=== PATIENT | male | born 1995 | race American Indian/Alaskan Native ===

== ENCOUNTER 2018-04-30 15:11 | Emergency (ER) | payer MEDICAID ==
[2018-04-30 16:11] LABS: Basophils % (Auto) 0.4 % (0.0-1.8); Eosinophils % (Auto) 0.1 % (0.0-4.3); Hematocrit 44.4 % (35.5-45.6); Hemoglobin 14.8 gm/dl (11.8-15.2); Lymphocytes # (Auto) 1.1 K/mm3 (1.2-5.4); Lymphocytes % (Auto) 33.3 % (13.4-35.0); Mean Corpuscular HGB Conc 33 % (32-34); Mean Corpuscular Volume 92 fl (84-94); Monocytes # (Auto) 0.3 K/mm3 (0.0-0.8); Monocytes % (Auto) 10.4 % (0.0-7.3); Platelet Count 181 K/mm3 (140-440); Red Blood Count 4.81 M/mm3 (3.65-5.03); Red Cell Distribution Width 12.7 % (13.2-15.2)
[2018-04-30 16:23] LABS: BUN/Creatinine Ratio 9; Blood Urea Nitrogen 8 mg/dL (9-20); Calcium 9.4 mg/dL (8.4-10.2); Hemolysis Index 8
[2018-04-30 16:42] LABS: Bilirubin,Urine NEG (Negative); Blood,Urine NEG (Negative); Color,Urine Yellow (Yellow); Hyaline Casts,Urine 1 /LPF; Mucus,Urine FEW /HPF; Protein,Urine <15 mg/dL mg/dL (Negative); Urobilinogen,Urine < 2.0 mg/dL (<2.0)
[2018-04-30 16:58] LABS: Amphetamine Screen,Urine PRESUMPTIVE NEGATIVE; Benzodiazepines Screen,Urine PRESUMPTIVE NEGATIVE; Cannabinoid Screen,Urine PRESUMPTIVE NEGATIVE; Cocaine Screen,Urine PRESUMPTIVE NEGATIVE; Methadone Screen,Urine PRESUMPTIVE NEGATIVE; Opiate Screen,Urine PRESUMPTIVE NEGATIVE
--- NOTE | 2018-04-30 16:58 | Emergency Department Report ---
ED Psych HPI - General Chief Complaint: Psych Stated Complaint: SUICIDE IDEATION Time Seen by Provider: 04/30/18 15:49 Source: patient Mode of arrival: Ambulatory Limitations: No Limitations - History of Present Illness MD Complaint: suicidal ideation -: Gradual Associated Psychiatric Symptoms: depression, suicidal ideation, auditory hallucinations History of same: Yes Quality: intermittent Improves With: medication Worsens With: none Context: not taking psychiatric Associated Symptoms: denies other symptoms Treatments Prior to Arrival: none If Self Harm: admits thoughts of - Related Data Home Medications Medication Instructions Recorded Confirmed Last Taken Benztropine [Cogentin] 1 mg PO BID 01/17/13 04/30/18 01/17/13 20:00 Clotrimazole/Betamethasone Dip 1 applic TP BID 01/17/13 04/30/18 01/17/13 20:00 [Clotrimazole-Betamethasone Lotion] Diphenhydramine HCl [Sleep-Aid] 25 mg PO HS 01/17/13 04/30/18 01/17/13 20:00 Divalproex ER [Depakote ER] 750 mg PO DAILY 01/17/13 04/30/18 01/17/13 20:00 Famotidine [Pepcid] 20 mg PO BID 01/17/13 04/30/18 01/17/13 20:00 Haloperidol 10 mg PO BID 01/17/13 04/30/18 01/17/13 20:00 Sertraline [Zoloft] 150 mg PO QDAY 01/17/13 04/30/18 01/17/13 20:00 Trazodone HCl [Oleptro ER] 150 mg PO QHS 01/17/13 04/30/18 01/17/13 20:00 cloNIDine [Catapres] 0.1 mg PO BID 01/17/13 04/30/18 01/17/13 20:00 clonazePAM [Clonazepam] 0.5 mg PO BID PRN 01/17/13 04/30/18 01/17/13 20:00 Allergies Allergy/AdvReac Type Severity Reaction Status Date / Time red dye Allergy Itching Verified 12/18/15 16:25 Sulfa (Sulfonamide Allergy Hives Verified 01/18/13 13:12 Antibiotics) ED Review of Systems ROS: Stated complaint: SUICIDE IDEATION Other details as noted in HPI Comment: All other systems reviewed and negative Constitutional: denies: chills, fever Eyes: denies: eye pain, eye discharge, vision change ENT: denies: ear pain, throat pain Respiratory: denies: cough, shortness of breath, wheezing Cardiovascular: denies: chest pain, palpitations Endocrine: no symptoms reported Gastrointestinal: denies: abdominal pain, nausea, diarrhea Genitourinary: denies: urgency, dysuria Musculoskeletal: denies: back pain, joint swelling, arthralgia Skin: denies: rash, lesions Neurological: denies: headache, weakness, paresthesias Psychiatric: auditory hallucinations, suicidal thoughts. denies: anxiety, depression, visual hallucinations, homicidal thoughts Hematological/Lymphatic: denies: easy bleeding, easy bruising ED Past Medical Hx - Past Medical History Hx Hypertension: Yes Hx Psychiatric Treatment: Yes (schizophrenia) - Surgical History Past Surgical History?: Yes Additional Surgical History: tubes in ears - Social History Smoking Status: Never Smoker Substance Use Type: None - Medications Home Medications: Home Medications Medication Instructions Recorded Confirmed Last Taken Type Benztropine [Cogentin] 1 mg PO BID 01/17/13 04/30/18 01/17/13 20:00 History Clotrimazole/Betamethasone Dip 1 applic TP BID 01/17/13 04/30/18 01/17/13 20:00 History [Clotrimazole-Betamethasone Lotion] Diphenhydramine HCl [Sleep-Aid] 25 mg PO HS 01/17/13 04/30/18 01/17/13 20:00 History Divalproex ER [Depakote ER] 750 mg PO DAILY 01/17/13 04/30/18 01/17/13 20:00 History Famotidine [Pepcid] 20 mg PO BID 01/17/13 04/30/18 01/17/13 20:00 History Haloperidol 10 mg PO BID 01/17/13 04/30/18 01/17/13 20:00 History Sertraline [Zoloft] 150 mg PO QDAY 01/17/13 04/30/18 01/17/13 20:00 History Trazodone HCl [Oleptro ER] 150 mg PO QHS 01/17/13 04/30/18 01/17/13 20:00 History cloNIDine [Catapres] 0.1 mg PO BID 01/17/13 04/30/18 01/17/13 20:00 History clonazePAM [Clonazepam] 0.5 mg PO BID PRN 01/17/13 04/30/18 01/17/13 20:00 History ED Physical Exam - General Limitations: No Limitations General appearance: alert, in no apparent distress - Head Head exam: Present: atraumatic, normocephalic - Eye Eye exam: Present: normal appearance, PERRL - ENT ENT exam: Present: normal exam, mucous membranes moist - Neck Neck exam: Present: normal inspection, full ROM - Respiratory Respiratory exam: Present: normal lung sounds bilaterally. Absent: respiratory distress - Cardiovascular Cardiovascular Exam: Present: regular rate, normal rhythm. Absent: systolic murmur, diastolic murmur, rubs, gallop - GI/Abdominal GI/Abdominal exam: Present: soft, normal bowel sounds - Rectal Rectal exam: Present: deferred - Extremities Exam Extremities exam: Present: normal inspection - Back Exam Back exam: Present: normal inspection - Neurological Exam Neurological exam: Present: alert, oriented X3 - Psychiatric Psychiatric exam: Present: normal mood, depressed, flat affect, suicidal ideation. Absent: homicidal ideation - Skin Skin exam: Present: warm, dry, intact, normal color. Absent: rash ED Course Vital Signs 04/30/18 15:23 Temperature 98.9 F Pulse Rate 54 L Respiratory 16 Rate Blood Pressure 123/60 O2 Sat by Pulse 97 Oximetry ED Medical Decision Making - Lab Data Result diagrams: 04/30/18 15:49 04/30/18 15:49 Lab Results 04/30/18 04/30/18 04/30/18 Range/Units 15:49 15:49 15:49 WBC (4.5-11.0) K/mm3 RBC (3.65-5.03) M/mm3 Hgb (11.8-15.2) gm/dl Hct (35.5-45.6) % MCV (84-94) fl MCH (28-32) pg MCHC (32-34) % RDW (13.2-15.2) % Plt Count (140-440) K/mm3 Lymph % (Auto) (13.4-35.0) % [place] % (Auto) (0.0-7.3) % Eos % (Auto) (0.0-4.3) % Baso % (Auto) (0.0-1.8) % Lymph # (1.2-5.4) K/mm3 [place] # (0.0-0.8) K/mm3 Eos # (0.0-0.4) K/mm3 Baso # (0.0-0.1) K/mm3 Seg Neutrophils % (40.0-70.0) % Seg Neutrophils # (1.8-7.7) K/mm3 Sodium 143 (137-145) mmol/L Potassium 3.3 L (3.6-5.0) mmol/L Chloride 102.1 (98-107) mmol/L Carbon Dioxide 28 (22-30) mmol/L Anion Gap 16 mmol/L BUN 8 L (9-20) mg/dL Creatinine 0.9 (0.8-1.5) mg/dL Estimated GFR > 60 ml/min BUN/Creatinine Ratio 9 % Glucose 93 (75-100) mg/dL Calcium 9.4 (8.4-10.2) mg/dL Urine Color (Yellow) Urine Turbidity (Clear) Urine pH (5.0-7.0) Ur Specific [place] (1.003-1.030) Urine Protein (Negative) mg/dL Urine Glucose (UA) (Negative) mg/dL Urine Ketones (Negative) mg/dL Urine Blood (Negative) Urine Nitrite (Negative) Urine Bilirubin (Negative) Urine Urobilinogen (<2.0) mg/dL Ur Leukocyte Esterase (Negative) Urine WBC (Auto) (0.0-6.0) /HPF Urine RBC (Auto) (0.0-6.0) /HPF Hyaline Casts /LPF Urine Mucus /HPF Salicylates < 0.3 L (2.8-20.0) mg/dL Urine Opiates Screen Urine Methadone Screen Acetaminophen < 5.0 L (10.0-30.0) ug/mL Ur Barbiturates Screen Ur Phencyclidine Scrn Ur Amphetamines Screen U Benzodiazepines Scrn Urine Cocaine Screen U Marijuana (THC) Screen Drugs of Abuse Note Plasma/Serum Alcohol (0-0.07) % 04/30/18 04/30/18 04/30/18 Range/Units 15:49 15:49 16:29 WBC 3.2 L (4.5-11.0) K/mm3 RBC 4.81 (3.65-5.03) M/mm3 Hgb 14.8 (11.8-15.2) gm/dl Hct 44.4 (35.5-45.6) % MCV 92 (84-94) fl MCH 31 (28-32) pg MCHC 33 (32-34) % RDW 12.7 L (13.2-15.2) % Plt Count 181 (140-440) K/mm3 Lymph % (Auto) 33.3 (13.4-35.0) % [place] % (Auto) 10.4 H (0.0-7.3) % Eos % (Auto) 0.1 (0.0-4.3) % Baso % (Auto) 0.4 (0.0-1.8) % Lymph # 1.1 L (1.2-5.4) K/mm3 Andrew # 0.3 (0.0-0.8) K/mm3 Eos # 0.0 (0.0-0.4) K/mm3 Baso # 0.0 (0.0-0.1) K/mm3 Seg Neutrophils % 55.8 (40.0-70.0) % Seg Neutrophils # 1.8 (1.8-7.7) K/mm3 Sodium (137-145) mmol/L Potassium (3.6-5.0) mmol/L Chloride (98-107) mmol/L Carbon Dioxide (22-30) mmol/L Anion Gap mmol/L BUN (9-20) mg/dL Creatinine (0.8-1.5) mg/dL Estimated GFR ml/min BUN/Creatinine Ratio % Glucose (75-100) mg/dL Calcium (8.4-10.2) mg/dL Urine Color Yellow (Yellow) Urine Turbidity Clear (Clear) Urine pH 7.0 (5.0-7.0) Ur Specific [place] 1.008 (1.003-1.030) Urine Protein <15 mg/dl (Negative) mg/dL Urine Glucose (UA) Neg (Negative) mg/dL Urine Ketones Neg (Negative) mg/dL Urine Blood Neg (Negative) Urine Nitrite Neg (Negative) Urine Bilirubin Neg (Negative) Urine Urobilinogen < 2.0 (<2.0) mg/dL Ur Leukocyte Esterase Neg (Negative) Urine WBC (Auto) 1.0 (0.0-6.0) /HPF Urine RBC (Auto) 1.0 (0.0-6.0) /HPF Hyaline Casts 1 /LPF Urine Mucus Few /HPF Salicylates (2.8-20.0) mg/dL Urine Opiates Screen Urine Methadone Screen Acetaminophen (10.0-30.0) ug/mL Ur Barbiturates Screen Ur Phencyclidine Scrn Ur Amphetamines Screen U Benzodiazepines Scrn Urine Cocaine Screen U Marijuana (THC) Screen Drugs of Abuse Note Plasma/Serum Alcohol < 0.01 (0-0.07) % 04/30/18 Range/Units 16:29 WBC (4.5-11.0) K/mm3 RBC (3.65-5.03) M/mm3 Hgb (11.8-15.2) gm/dl Hct (35.5-45.6) % MCV (84-94) fl MCH (28-32) pg MCHC (32-34) % RDW (13.2-15.2) % Plt Count (140-440) K/mm3 Lymph % (Auto) (13.4-35.0) % [place] % (Auto) (0.0-7.3) % Eos % (Auto) (0.0-4.3) % Baso % (Auto) (0.0-1.8) % Lymph # (1.2-5.4) K/mm3 Andrew # (0.0-0.8) K/mm3 Eos # (0.0-0.4) K/mm3 Baso # (0.0-0.1) K/mm3 Seg Neutrophils % (40.0-70.0) % Seg Neutrophils # (1.8-7.7) K/mm3 Sodium (137-145) mmol/L Potassium (3.6-5.0) mmol/L Chloride (98-107) mmol/L Carbon Dioxide (22-30) mmol/L Anion Gap mmol/L BUN (9-20) mg/dL Creatinine (0.8-1.5) mg/dL Estimated GFR ml/min BUN/Creatinine Ratio % Glucose (75-100) mg/dL Calcium (8.4-10.2) mg/dL Urine Color (Yellow) Urine Turbidity (Clear) Urine pH (5.0-7.0) Ur Specific [place] (1.003-1.030) Urine Protein (Negative) mg/dL Urine Glucose (UA) (Negative) mg/dL Urine Ketones (Negative) mg/dL Urine Blood (Negative) Urine Nitrite (Negative) Urine Bilirubin (Negative) Urine Urobilinogen (<2.0) mg/dL Ur Leukocyte Esterase (Negative) Urine WBC (Auto) (0.0-6.0) /HPF Urine RBC (Auto) (0.0-6.0) /HPF Hyaline Casts /LPF Urine Mucus /HPF Salicylates (2.8-20.0) mg/dL Urine Opiates Screen Presumptive negative Urine Methadone Screen Presumptive negative Acetaminophen (10.0-30.0) ug/mL Ur Barbiturates Screen Presumptive negative Ur Phencyclidine Scrn Presumptive negative Ur Amphetamines Screen Presumptive negative U Benzodiazepines Scrn Presumptive negative Urine Cocaine Screen Presumptive negative U Marijuana (THC) Screen Presumptive negative Drugs of Abuse Note Disclamer Plasma/Serum Alcohol (0-0.07) % - Medical Decision Making Suicide Ideation. Patient is medically cleared for psychiatric evaluation. Critical care attestation.: If time is entered above; I have spent that time in minutes in the direct care of this critically ill patient, excluding procedure time. ED Disposition Clinical Impression: Suicidal ideation, History of bipolar disorder Disposition: [id number]/TX-65 PSY HOSP/PSY UNIT Is pt being admited?: No Does the pt Need Aspirin: No Condition: Stable Time of Disposition: 18:36
[2018-04-30] MEDS ORDERED: K-DUR PO ONE (17:23)
[2018-05-01 08:53] VITALS: BP 125/73
[2018-05-01 09:26] LABS: Alanine Aminotransferase 17 units/L (7-56)
--- NOTE | 2018-05-01 09:47 | Consultation ---
History of Present Illness - Reason for Consult Consult date: 05/01/18 Reason for consult: Mental Health Evaluation Requesting physician: SOPHY GODDARD - Chief Complaint Chief complaint: "I am okay" - History of Present Psychiatric Illness 23 y.o. AA male who presented to the ER for SI's. Today the patent is calm and cooperative during the assessment. He stated that he was upset and ran away yesterday from his snf. Per collateral information from his caretaker grounds Mr Leonard Ernandez at [phone], he stated that patient is known to run away when he cannot see his mother. He stated that the patient's mother promised to see him yesterday, but she didn't show up so he got upset and left the residence. The patient confirmed that he ran away because he wanted to see his mother. Mr Ernandez denies any previous SI's, nor was aware of the patient being suicidal currently. Mr Ernandez stated the patient can return back to the snf. Mr Ernandez is setting up outpatient psy services with Dr Blum for the patient. The patent denies SI/HI's. Medications and Allergies Allergies Allergy/AdvReac Type Severity Reaction Status Date / Time red dye Allergy Itching Verified 12/18/15 16:25 Sulfa (Sulfonamide Allergy Hives Verified 01/18/13 13:12 Antibiotics) Home Medications Medication Instructions Recorded Confirmed Last Taken Type Benztropine [Cogentin] 2 mg PO BID 01/17/13 04/30/18 01/17/13 20:00 History Clotrimazole/Betamethasone Dip 1 applic TP BID 01/17/13 04/30/18 01/17/13 20:00 History [Clotrimazole-Betamethasone Lotion] Diphenhydramine HCl [Sleep-Aid] 25 mg PO HS 01/17/13 04/30/18 01/17/13 20:00 History Divalproex ER [Depakote ER] 750 mg PO DAILY 01/17/13 04/30/18 01/17/13 20:00 History Famotidine [Pepcid] 20 mg PO BID 01/17/13 04/30/18 01/17/13 20:00 History Haloperidol 5 mg PO BID 01/17/13 04/30/18 01/17/13 20:00 History Sertraline [Zoloft] 100 mg PO QDAY 01/17/13 04/30/18 01/17/13 20:00 History Trazodone HCl [Oleptro ER] 150 mg PO QHS 01/17/13 04/30/18 01/17/13 20:00 History cloNIDine [Catapres] 0.1 mg PO BID 01/17/13 04/30/18 01/17/13 20:00 History clonazePAM [Clonazepam] 0.5 mg PO BID PRN 01/17/13 04/30/18 01/17/13 20:00 History OLANzapine [ZyPREXA] 15 mg PO DAILY 04/30/18 04/30/18 Unknown History Paliperidone Palmitate(Nf) [Invega 234 mg IM QMONTH 04/30/18 04/30/18 04/26/18 10:00 History Sustenna(Nf)] Past psychiatric history - Past Medical History Past Medical History: hypertension Past Surgical History: Other (Unable to obtain ) - past Psychiatric treatment and history psychiatric treatment history: Hx of Intelluctual Disability. Unable to obtain a fam psy hx. - Social History Social history: other (Reside at a snf) Mental Status Exam - Vital signs Last Vital Signs Temp 99.1 F 05/01/18 08:37 Pulse 64 05/01/18 08:37 Resp 18 05/01/18 08:37 BP 125/73 05/01/18 08:37 Pulse Ox 99 05/01/18 08:37 - Exam Narrative exam: MSE: Appearance: calm, cooperative Behavior: regular eye contact Speech: regular rate and tone Mood: elated Affect: congruent to mood Thought Process: circumstantial Thought Content: denies SI/HI's Motor Activity: ambulatory Cognition: alert Insight: variable Judgment: fair Results Result Diagrams: 04/30/18 15:49 04/30/18 15:49 Abnormal lab results 04/30/18 04/30/18 04/30/18 Range/Units 15:49 15:49 15:49 WBC (4.5-11.0) K/mm3 RDW (13.2-15.2) % [place] % (Auto) (0.0-7.3) % Lymph # (1.2-5.4) K/mm3 Potassium 3.3 L (3.6-5.0) mmol/L BUN 8 L (9-20) mg/dL Salicylates < 0.3 L (2.8-20.0) mg/dL Acetaminophen < 5.0 L (10.0-30.0) ug/mL 04/30/18 Range/Units 15:49 WBC 3.2 L (4.5-11.0) K/mm3 RDW 12.7 L (13.2-15.2) % [place] % (Auto) 10.4 H (0.0-7.3) % Lymph # 1.1 L (1.2-5.4) K/mm3 Potassium (3.6-5.0) mmol/L BUN (9-20) mg/dL Salicylates (2.8-20.0) mg/dL Acetaminophen (10.0-30.0) ug/mL All other labs normal. Assessment and Plan Assessment and plan: Impression: Unspecified Intellectual Disability. Today the patent is calm and cooperative during the assessment. Per collateral information, the patient is known to have impulsive behavior. The patient is no threat to self. Recommendation/Plan: Rescind [id number]. Per Mr. Leonard Ernandez at [phone] , the patient do not need any prescriptions. Dispo: The patient can follow up with Dr Blum or [facility] for outpatient psy services. Will staff with Dr Marques.
--- NOTE | 2018-05-01 10:20 | Emergency Department Report ---
Blank Doc - Documentation Documentation: Mr. Mora will be discharged. I have reviewed recommendations provided by p sychiatry team who rescinded [id number].
== END 2018-05-01 09:10 | disposition home or self-care (01) ==
LOC: ED 15:11
DX: F31.9 Bipolar disorder, unspecified (principal); F79 Unspecified intellectual disabilities; R45.851 Suicidal ideations; F20.9 Schizophrenia, unspecified; Z88.2 Allergy status to sulfonamides; Z91.048 Other nonmedicinal substance allergy status
CPT/HCPCS: 36415; 80048; 80164; 80307; 81001; 82150; 83690; 84075; 84450; 84460; 85025; 99284; G0480; 80320

== ENCOUNTER 2020-02-25 02:10 | Emergency (ER) | payer MEDICAID | END 2020-02-25 06:19 | disposition left against medical advice (07) | LOC: ED 02:10 | DX: Z00.8 Encounter for other general examination (principal); Z53.21 Procedure and treatment not carried out due to patient leaving prior to being seen by health care provider ==